=== PATIENT | female | born 1945 | race Hispanic/Latino ===

== ENCOUNTER 2020-06-09 14:21 | Outpatient (CLI) | payer MEDICARE, BC | END 2020-06-09 14:22 | disposition home or self-care (01) | LOC: CSHWCC 14:21 | PROVIDERS: ATTEND Nurse Practitioner Family | DX: E11.621 Type 2 diabetes mellitus with foot ulcer (principal); L97.518 Non-pressure chronic ulcer of other part of right foot with other specified severity; L89.610 Pressure ulcer of right heel, unstageable; R60.0 Localized edema; S80.821A Blister (nonthermal), right lower leg, initial encounter; S90.821A Blister (nonthermal), right foot, initial encounter; E11.22 Type 2 diabetes mellitus with diabetic chronic kidney disease; I12.0 Hypertensive chronic kidney disease with stage 5 chronic kidney disease or end stage renal disease; I87.2 Venous insufficiency (chronic) (peripheral); I96 Gangrene, not elsewhere classified; N18.6 End stage renal disease; T82.868A Thrombosis due to vascular prosthetic devices, implants and grafts, initial encounter; E11.51 Type 2 diabetes mellitus with diabetic peripheral angiopathy without gangrene | CPT/HCPCS: 99205; G0463 ==

== ENCOUNTER 2020-06-10 19:54 | Inpatient (IN) | payer MEDICARE, BC ==
[2020-06-10] MEDS ORDERED: guaiFENesin 100 MG/5 ML UDCUP PO PRN (23:15)
[2020-06-10] MEDS ORDERED: Loperamide HCl 2 MG CAP PO PRN (23:16)
[2020-06-10] MEDS ORDERED: Apixaban 2.5 MG TAB PO SCH (23:30)
[2020-06-10] MEDS ORDERED: Insulin Regular 300 UNITS/3 ML VIAL SC PRN (23:30)
[2020-06-10] MEDS ORDERED: Calcium Carbonate 500 MG ChewTAB PO SCH (23:59)
[2020-06-11] MEDS ORDERED: Acetaminophen 500 MG TAB PO SCH (01:00)
[2020-06-11] MEDS ORDERED: Calcium Carbonate 500 MG ChewTAB PO PRN ×2 (04:50→05:00)
[2020-06-11] MEDS: HumaLOG 300 UNITS/3 ML VIAL SC SCH ×3 (09:04→16:00)
[2020-06-11] MEDS: Clindamycin 150 MG CAP PO SCH ×3 (09:05→21:29)
[2020-06-11] MEDS: Polyethylene Glycol 3350 17 GM Packet PO SCH (09:05)
[2020-06-11] MEDS: hydrALAZINE 25 MG TAB PO SCH ×3 (09:05→21:00)
[2020-06-11] MEDS: NPH, Human Insulin Isophane 300 UNIT/3 ML VIAL SC SCH (09:05)
[2020-06-11] MEDS: cloNIDine 0.1 MG TAB PO SCH (09:05)
[2020-06-11] MEDS: Clopidogrel Bisulfate 75 MG TAB PO SCH (09:05)
[2020-06-11] MEDS: Simethicone Chewable 80 MG TAB PO SCH ×3 (09:06→21:29)
[2020-06-11] MEDS: Amlodipine 5 MG TAB PO SCH (09:06)
[2020-06-11] MEDS: Apixaban 2.5 MG TAB PO SCH ×2 (09:07→21:28)
[2020-06-11] MEDS: Metoprolol Tartrate 50 MG TAB PO SCH (09:07)
[2020-06-11] MEDS: Isosorbide Mononitrate 20 MG TAB PO SCH (09:39)
[2020-06-11] MEDS: Acetaminophen 500 MG TAB PO PRN ×4 (09:39→21:39)
[2020-06-11] MEDS ORDERED: Heparin 10,000 UNITS/ 10 ML VIAL SLOW IVP PRN (12:28)
[2020-06-11] MEDS ORDERED: Heparin 10,000 UNITS/ 10 ML VIAL CATH PRN (12:32)
[2020-06-11 14:35] LABS: SARS-CoV-2 PCR by NAA Not Detected (NotDetected)
[2020-06-11] MEDS: Atorvastatin Calcium 40 MG TAB PO SCH (21:28)
[2020-06-11] MEDS: rOPINIRole HCl 0.25 MG TAB PO SCH (21:28)
[2020-06-12] MEDS: Metoprolol Tartrate 50 MG TAB PO SCH ×2 (03:50→08:50)
[2020-06-12] MEDS: Isosorbide Mononitrate 20 MG TAB PO SCH ×2 (03:50→08:49)
[2020-06-12] MEDS: NPH, Human Insulin Isophane 300 UNIT/3 ML VIAL SC SCH ×2 (03:52→08:30)
[2020-06-12] MEDS: Acetaminophen 500 MG TAB PO PRN ×2 (04:06→10:04)
[2020-06-12] MEDS: HumaLOG 300 UNITS/3 ML VIAL SC SCH ×3 (08:30→17:10)
[2020-06-12] MEDS: Polyethylene Glycol 3350 17 GM Packet PO SCH (08:49)
[2020-06-12] MEDS: Clopidogrel Bisulfate 75 MG TAB PO SCH (08:50)
[2020-06-12] MEDS: Furosemide 40 MG TAB PO SCH (08:50)
[2020-06-12] MEDS: cloNIDine 0.1 MG TAB PO SCH (08:50)
[2020-06-12] MEDS: hydrALAZINE 25 MG TAB PO SCH ×2 (08:50→16:00)
[2020-06-12] MEDS: Apixaban 2.5 MG TAB PO SCH ×2 (08:50→21:04)
[2020-06-12] MEDS: Clindamycin 150 MG CAP PO SCH ×3 (08:50→22:17)
[2020-06-12] MEDS: Amlodipine 5 MG TAB PO SCH (08:50)
[2020-06-12] MEDS: Simethicone Chewable 80 MG TAB PO SCH ×3 (08:51→21:04)
[2020-06-12 10:40] LABS: #Eosinphils 0.1 10x3/uL (0.0-0.5); #Monocytes 1.2 10x3/uL (0.0-1.1); %Basophils 0.3 % (0.0-2.0); %Eosinophils 0.3 % (0.0-6.0); %Lymphocytes 4.8 % (18.0-47.0); %Monocytes 8.1 % (0.0-10.0); %Neutrophils 85.1 % (40.0-75.0); Hemoglobin 6.8 g/dL (12.0-15.5); Mean Corpuscular HGB CONC 32.2 g/dL (32.0-36.0); Mean Corpuscular Hemoglobin 29.1 pg (27.0-33.0); Mean Corpuscular Volume 90.2 fl (81.6-98.3); Mean Platelet Volume 9.5 fl (7.4-10.4); Platelet Count 185 10x3/uL (150-450); RBC Distribution Width 15.1 % (11.5-14.5); Red Blood Cell (RBC) Count 2.34 10x6/uL (3.90-5.03); White Blood Cell (WBC) Count 15.2 10x3/uL (3.5-10.5)
[2020-06-12 11:08] LABS: ALT (SGPT) 21 U/L (8-55); AST (SGOT) 35 U/L (5-34); Albumin 2.6 g/dL (3.4-4.8); Alkaline Phosphatase 94 U/L (40-110); Anion Gap 15 mmol/L (10-20); BUN (Urea Nitrogen) 24 mg/dL (9.8-20.1); Bilirubin, Total 0.7 mg/dL (0.2-1.2); Calc. Creatinine Clearance 27 mL/min (70-130); Calcium 9.5 mg/dL (7.8-10.44); Carbon Dioxide 27 mmol/L (23-31); Chloride 92 mmol/L (98-107); Globulin 3.3 g/dL (2.4-3.5); Glucose 130 mg/dL (83-110); Potassium 3.8 mmol/L (3.5-5.1); Protein, Total 5.9 g/dL (5.8-8.1); Sodium 130 mmol/L (136-145)
[2020-06-12] MEDS: HYDROcodone/Acetaminophen 5/325 mg Tablet PO PRN ×2 (13:22→21:04)
[2020-06-12] MEDS: Atorvastatin Calcium 40 MG TAB PO SCH (21:04)
[2020-06-12] MEDS: rOPINIRole HCl 0.25 MG TAB PO SCH (21:06)
[2020-06-13] MEDS: hydrALAZINE 25 MG TAB PO SCH ×4 (00:14→21:09)
[2020-06-13] MEDS: Metoprolol Tartrate 50 MG TAB PO SCH ×3 (00:14→21:08)
[2020-06-13] MEDS: Isosorbide Mononitrate 20 MG TAB PO SCH ×3 (00:14→22:00)
[2020-06-13] MEDS: NPH, Human Insulin Isophane 300 UNIT/3 ML VIAL SC SCH ×3 (05:42→21:02)
[2020-06-13 09:15] LABS: #Eosinphils 0.1 10x3/uL (0.0-0.5); #Monocytes 1.2 10x3/uL (0.0-1.1); #Neutrophils 12.3 10x3/uL (1.5-8.4); %Basophils 0.2 % (0.0-2.0); %Eosinophils 0.7 % (0.0-6.0); %Lymphocytes 5.5 % (18.0-47.0); %Neutrophils 83.9 % (40.0-75.0); Hemoglobin 8.1 g/dL (12.0-15.5); Mean Corpuscular HGB CONC 33.1 g/dL (32.0-36.0); Mean Corpuscular Hemoglobin 29.2 pg (27.0-33.0); Mean Corpuscular Volume 88.4 fl (81.6-98.3); Mean Platelet Volume 9.5 fl (7.4-10.4); Platelet Count 177 10x3/uL (150-450); RBC Distribution Width 14.9 % (11.5-14.5); Red Blood Cell (RBC) Count 2.77 10x6/uL (3.90-5.03); White Blood Cell (WBC) Count 14.7 10x3/uL (3.5-10.5)
[2020-06-13] MEDS ORDERED: NPH, Human Insulin Isophane 300 UNIT/3 ML VIAL ONE (10:01)
[2020-06-13] MEDS: HYDROcodone/Acetaminophen 5/325 mg Tablet PO PRN ×2 (10:03→15:01)
[2020-06-13] MEDS: HumaLOG 300 UNITS/3 ML VIAL SC SCH ×3 (10:16→18:57)
[2020-06-13] MEDS: Polyethylene Glycol 3350 17 GM Packet PO SCH (10:17)
[2020-06-13] MEDS: cloNIDine 0.1 MG TAB PO SCH (10:18)
[2020-06-13] MEDS: Amlodipine 5 MG TAB PO SCH (10:19)
[2020-06-13] MEDS: Simethicone Chewable 80 MG TAB PO SCH ×3 (10:20→21:09)
[2020-06-13] MEDS: Apixaban 2.5 MG TAB PO SCH ×2 (10:20→21:08)
[2020-06-13] MEDS: Clopidogrel Bisulfate 75 MG TAB PO SCH (10:20)
[2020-06-13] MEDS: Clindamycin 150 MG CAP PO SCH ×3 (10:20→21:11)
[2020-06-13] MEDS ORDERED: Epoetin (ESRD) 20,000 UNITS/ML SC SCH (12:30)
[2020-06-13] MEDS: EPOETIN ALFA-EPBX (ESRD) 4,000 UNIT/ML VIAL SC SCH (15:56)
[2020-06-13] MEDS: Atorvastatin Calcium 40 MG TAB PO SCH (21:08)
[2020-06-13] MEDS: rOPINIRole HCl 0.25 MG TAB PO SCH (21:09)
[2020-06-14 07:30] LABS: #Monocytes 1.1 10x3/uL (0.0-1.1); #Neutrophils 14.1 10x3/uL (1.5-8.4); %Basophils 0.2 % (0.0-2.0); %Eosinophils 0.2 % (0.0-6.0); %Lymphocytes 3.3 % (18.0-47.0); %Monocytes 6.8 % (0.0-10.0); %Neutrophils 87.8 % (40.0-75.0); Hemoglobin 9.4 g/dL (12.0-15.5); Mean Corpuscular HGB CONC 32.8 g/dL (32.0-36.0); Mean Corpuscular Hemoglobin 29.2 pg (27.0-33.0); Mean Corpuscular Volume 89.1 fl (81.6-98.3); Mean Platelet Volume 9.5 fl (7.4-10.4); Platelet Count 222 10x3/uL (150-450); Red Blood Cell (RBC) Count 3.22 10x6/uL (3.90-5.03); White Blood Cell (WBC) Count 16.1 10x3/uL (3.5-10.5)
[2020-06-14 07:46] LABS: Anion Gap 18 mmol/L (10-20); BUN (Urea Nitrogen) 19 mg/dL (9.8-20.1); Calc. Creatinine Clearance 34 mL/min (70-130); Calcium 9.7 mg/dL (7.8-10.44); Carbon Dioxide 24 mmol/L (23-31); Chloride 96 mmol/L (98-107); Glucose 100 mg/dL (83-110); Potassium 3.9 mmol/L (3.5-5.1); Sodium 134 mmol/L (136-145)
[2020-06-14] MEDS: HumaLOG 300 UNITS/3 ML VIAL SC SCH ×3 (08:15→16:43)
[2020-06-14] MEDS: NPH, Human Insulin Isophane 300 UNIT/3 ML VIAL SC SCH ×2 (08:16→21:44)
[2020-06-14] MEDS: Polyethylene Glycol 3350 17 GM Packet PO SCH (09:26)
[2020-06-14] MEDS: Clindamycin 150 MG CAP PO SCH ×3 (09:27→20:34)
[2020-06-14] MEDS: Amlodipine 5 MG TAB PO SCH (09:27)
[2020-06-14] MEDS: Simethicone Chewable 80 MG TAB PO SCH ×3 (09:28→20:34)
[2020-06-14] MEDS: hydrALAZINE 25 MG TAB PO SCH ×3 (09:28→20:48)
[2020-06-14] MEDS: Isosorbide Mononitrate 20 MG TAB PO SCH ×2 (09:29→20:35)
[2020-06-14] MEDS: cloNIDine 0.1 MG TAB PO SCH (09:29)
[2020-06-14] MEDS: Metoprolol Tartrate 50 MG TAB PO SCH (09:29)
[2020-06-14] MEDS: Apixaban 2.5 MG TAB PO SCH ×2 (09:29→20:33)
[2020-06-14] MEDS: Clopidogrel Bisulfate 75 MG TAB PO SCH (09:29)
[2020-06-14 13:00] LABS: Lactic Acid 0.7 mmol/L (0.5-2.2)
[2020-06-14] MEDS: HYDROcodone/Acetaminophen 5/325 mg Tablet PO PRN (14:10)
[2020-06-14] MEDS: Carvedilol 6.25 MG TAB PO SCH (16:50)
[2020-06-14] MEDS: rOPINIRole HCl 0.25 MG TAB PO SCH (20:34)
[2020-06-14] MEDS: Atorvastatin Calcium 40 MG TAB PO SCH (20:34)
[2020-06-14] MEDS: Insulin Regular 300 UNITS/3 ML VIAL SC PRN (21:11)
[2020-06-15] MEDS: Acetaminophen 500 MG TAB PO PRN (05:40)
[2020-06-15] MEDS: Insulin Regular 300 UNITS/3 ML VIAL SC PRN ×4 (05:50→20:58)
[2020-06-15] MEDS: Polyethylene Glycol 3350 17 GM Packet PO SCH (07:43)
[2020-06-15] MEDS: Amlodipine 5 MG TAB PO SCH (08:03)
[2020-06-15] MEDS: HYDROcodone/Acetaminophen 5/325 mg Tablet PO PRN (08:04)
[2020-06-15] MEDS: Clopidogrel Bisulfate 75 MG TAB PO SCH (08:10)
[2020-06-15] MEDS: Clindamycin 150 MG CAP PO SCH ×3 (08:10→21:04)
[2020-06-15] MEDS: Carvedilol 6.25 MG TAB PO SCH ×2 (08:11→16:27)
[2020-06-15] MEDS: Simethicone Chewable 80 MG TAB PO SCH ×3 (08:11→21:05)
[2020-06-15] MEDS: cloNIDine 0.1 MG TAB PO SCH (08:11)
[2020-06-15] MEDS: hydrALAZINE 25 MG TAB PO SCH ×3 (08:11→21:04)
[2020-06-15] MEDS: Apixaban 2.5 MG TAB PO SCH ×2 (08:11→21:05)
[2020-06-15] MEDS: Isosorbide Mononitrate 20 MG TAB PO SCH ×2 (08:21→21:27)
[2020-06-15] MEDS: HumaLOG 300 UNITS/3 ML VIAL SC SCH ×3 (08:22→17:35)
[2020-06-15] MEDS: NPH, Human Insulin Isophane 300 UNIT/3 ML VIAL SC SCH ×2 (08:22→21:27)
[2020-06-15 08:41] LABS: #Eosinphils 0.1 10x3/uL (0.0-0.5); #Monocytes 1.1 10x3/uL (0.0-1.1); #Neutrophils 13.7 10x3/uL (1.5-8.4); %Basophils 0.3 % (0.0-2.0); %Eosinophils 0.4 % (0.0-6.0); %Lymphocytes 3.7 % (18.0-47.0); %Monocytes 7.2 % (0.0-10.0); %Neutrophils 86.3 % (40.0-75.0); Hemoglobin 8.9 g/dL (12.0-15.5); Mean Corpuscular HGB CONC 33.1 g/dL (32.0-36.0); Mean Corpuscular Hemoglobin 29.4 pg (27.0-33.0); Mean Corpuscular Volume 88.8 fl (81.6-98.3); Mean Platelet Volume 9.6 fl (7.4-10.4); Platelet Count 202 10x3/uL (150-450); RBC Distribution Width 15.2 % (11.5-14.5); Red Blood Cell (RBC) Count 3.03 10x6/uL (3.90-5.03); White Blood Cell (WBC) Count 15.9 10x3/uL (3.5-10.5)
[2020-06-15] MEDS ORDERED: HYDROcodone/Acetaminophen 5/325 mg Tablet PO SCH (10:00)
[2020-06-15] MEDS: Morphine 2 MG/ML VIAL SLOW IVP PRN ×3 (13:09→21:25)
[2020-06-15] MEDS: Atorvastatin Calcium 40 MG TAB PO SCH (21:04)
[2020-06-15] MEDS: rOPINIRole HCl 0.25 MG TAB PO SCH (21:05)
[2020-06-16] MEDS: Insulin Regular 300 UNITS/3 ML VIAL SC PRN ×2 (04:40→08:50)
[2020-06-16 05:30] LABS: Anion Gap 14 mmol/L (10-20)
[2020-06-16 05:42] LABS: #Basophils 0.1 10x3/uL (0.0-0.2); #Eosinphils 0.1 10x3/uL (0.0-0.5); #Monocytes 0.8 10x3/uL (0.0-1.1); #Neutrophils 10.5 10x3/uL (1.5-8.4); %Basophils 0.4 % (0.0-2.0); %Lymphocytes 5.2 % (18.0-47.0); %Monocytes 6.4 % (0.0-10.0); %Neutrophils 83.6 % (40.0-75.0); Hemoglobin 8.7 g/dL (12.0-15.5); Mean Corpuscular HGB CONC 33.2 g/dL (32.0-36.0); Mean Corpuscular Hemoglobin 29.1 pg (27.0-33.0); Mean Corpuscular Volume 87.6 fl (81.6-98.3); Mean Platelet Volume 9.5 fl (7.4-10.4); Platelet Count 184 10x3/uL (150-450); RBC Distribution Width 15.1 % (11.5-14.5); Red Blood Cell (RBC) Count 2.99 10x6/uL (3.90-5.03); White Blood Cell (WBC) Count 12.5 10x3/uL (3.5-10.5)
[2020-06-16 05:49] LABS: BUN (Urea Nitrogen) 34 mg/dL (9.8-20.1); Calc. Creatinine Clearance 21 mL/min (70-130); Calcium 9.2 mg/dL (7.8-10.44); Carbon Dioxide 28 mmol/L (23-31); Chloride 91 mmol/L (98-107); Glucose 186 mg/dL (83-110); Sodium 129 mmol/L (136-145)
[2020-06-16] MEDS: Polyethylene Glycol 3350 17 GM Packet PO SCH (08:40)
[2020-06-16] MEDS: Clindamycin 150 MG CAP PO SCH ×3 (08:40→21:09)
[2020-06-16] MEDS: Simethicone Chewable 80 MG TAB PO SCH ×3 (08:40→21:10)
[2020-06-16] MEDS: Clopidogrel Bisulfate 75 MG TAB PO SCH (08:41)
[2020-06-16] MEDS: Isosorbide Mononitrate 20 MG TAB PO SCH ×2 (08:41→21:09)
[2020-06-16] MEDS: Apixaban 2.5 MG TAB PO SCH ×2 (08:41→21:08)
[2020-06-16] MEDS: Furosemide 40 MG TAB PO SCH (08:41)
[2020-06-16] MEDS: Amlodipine 5 MG TAB PO SCH ×2 (08:42→08:43)
[2020-06-16] MEDS: Carvedilol 6.25 MG TAB PO SCH ×2 (08:43→18:03)
[2020-06-16] MEDS: hydrALAZINE 25 MG TAB PO SCH ×3 (08:43→23:00)
[2020-06-16] MEDS: NPH, Human Insulin Isophane 300 UNIT/3 ML VIAL SC SCH ×2 (08:47→21:11)
[2020-06-16] MEDS: HumaLOG 300 UNITS/3 ML VIAL SC SCH ×3 (08:48→16:36)
[2020-06-16] MEDS: Morphine 2 MG/ML VIAL SLOW IVP PRN (13:38)
[2020-06-16] MEDS: Dextrose 50% Abboject 50 ML SYRINGE SLOW IVP PRN (16:33)
[2020-06-16] MEDS: EPOETIN ALFA-EPBX (ESRD) 4,000 UNIT/ML VIAL SC SCH (17:52)
[2020-06-16] MEDS: Atorvastatin Calcium 40 MG TAB PO SCH (21:09)
[2020-06-16] MEDS: rOPINIRole HCl 0.25 MG TAB PO SCH (21:10)
[2020-06-16] MEDS: Acetaminophen 500 MG TAB PO PRN (21:43)
[2020-06-17] MEDS: Acetaminophen 500 MG TAB PO PRN ×3 (02:22→21:01)
[2020-06-17] MEDS: Polyethylene Glycol 3350 17 GM Packet PO SCH (09:24)
[2020-06-17] MEDS: Clindamycin 150 MG CAP PO SCH ×3 (09:24→20:59)
[2020-06-17] MEDS: Carvedilol 6.25 MG TAB PO SCH ×2 (09:25→16:48)
[2020-06-17] MEDS: Amlodipine 5 MG TAB PO SCH (09:25)
[2020-06-17] MEDS: hydrALAZINE 25 MG TAB PO SCH ×3 (09:29→20:59)
[2020-06-17] MEDS: Apixaban 2.5 MG TAB PO SCH ×2 (09:29→20:58)
[2020-06-17] MEDS: Simethicone Chewable 80 MG TAB PO SCH ×3 (09:29→21:00)
[2020-06-17] MEDS: Clopidogrel Bisulfate 75 MG TAB PO SCH (09:29)
[2020-06-17] MEDS: NPH, Human Insulin Isophane 300 UNIT/3 ML VIAL SC SCH (09:30)
[2020-06-17] MEDS: Isosorbide Mononitrate 20 MG TAB PO SCH ×2 (09:30→21:00)
[2020-06-17] MEDS: HumaLOG 300 UNITS/3 ML VIAL SC SCH ×3 (09:31→16:29)
[2020-06-17] MEDS ORDERED: Modafinil 100 MG TAB PO SCH (11:00)
[2020-06-17 11:22] LABS: #Eosinphils 0.1 10x3/uL (0.0-0.5); #Monocytes 1.1 10x3/uL (0.0-1.1); #Neutrophils 10.6 10x3/uL (1.5-8.4); %Basophils 0.3 % (0.0-2.0); %Eosinophils 0.5 % (0.0-6.0); %Lymphocytes 4.3 % (18.0-47.0); %Monocytes 8.8 % (0.0-10.0); %Neutrophils 83.6 % (40.0-75.0); Mean Corpuscular Hemoglobin 29.2 pg (27.0-33.0); Mean Corpuscular Volume 91.2 fl (81.6-98.3); Mean Platelet Volume 9.6 fl (7.4-10.4); Platelet Count 184 10x3/uL (150-450); RBC Distribution Width 15.4 % (11.5-14.5); Red Blood Cell (RBC) Count 2.74 10x6/uL (3.90-5.03); White Blood Cell (WBC) Count 12.6 10x3/uL (3.5-10.5)
[2020-06-17 11:29] LABS: Anion Gap 12 mmol/L (10-20); BUN (Urea Nitrogen) 27 mg/dL (9.8-20.1); Calc. Creatinine Clearance 25 mL/min (70-130); Calcium 9.4 mg/dL (7.8-10.44); Carbon Dioxide 27 mmol/L (23-31); Chloride 94 mmol/L (98-107); Glucose 212 mg/dL (83-110); Potassium 3.7 mmol/L (3.5-5.1); Sodium 129 mmol/L (136-145)
[2020-06-17] MEDS: HYDROcodone/Acetaminophen 5/325 mg Tablet PO PRN (12:18)
[2020-06-17] MEDS: Atorvastatin Calcium 40 MG TAB PO SCH (20:58)
[2020-06-17] MEDS: rOPINIRole HCl 0.25 MG TAB PO SCH (21:00)
[2020-06-18] MEDS: NPH, Human Insulin Isophane 300 UNIT/3 ML VIAL SC SCH ×3 (01:14→21:14)
[2020-06-18] MEDS: HumaLOG 300 UNITS/3 ML VIAL SC SCH ×3 (07:30→16:44)
[2020-06-18] MEDS: Ferrous Gluconate 324 MG TAB PO SCH (08:23)
[2020-06-18] MEDS: Acetaminophen 500 MG TAB PO PRN (08:23)
[2020-06-18] MEDS: Carvedilol 6.25 MG TAB PO SCH ×2 (08:23→16:44)
[2020-06-18] MEDS: Clopidogrel Bisulfate 75 MG TAB PO SCH (08:23)
[2020-06-18] MEDS: Clindamycin 150 MG CAP PO SCH ×3 (08:24→21:20)
[2020-06-18] MEDS: hydrALAZINE 25 MG TAB PO SCH ×3 (08:24→21:20)
[2020-06-18] MEDS: Amlodipine 5 MG TAB PO SCH (08:24)
[2020-06-18] MEDS: Polyethylene Glycol 3350 17 GM Packet PO SCH (08:24)
[2020-06-18] MEDS: Apixaban 2.5 MG TAB PO SCH ×2 (08:25→21:20)
[2020-06-18] MEDS: Simethicone Chewable 80 MG TAB PO SCH ×3 (08:35→21:21)
[2020-06-18] MEDS: Isosorbide Mononitrate 20 MG TAB PO SCH ×2 (08:37→21:20)
[2020-06-18 12:38] LABS: Hep B Surf Ag Non-Reactive S/CO (NonReactive)
[2020-06-18 12:50] LABS: HBSAg Index 0.33 S/CO (0-0.99)
[2020-06-18] MEDS: EPOETIN ALFA-EPBX (ESRD) 4,000 UNIT/ML VIAL SC SCH (15:04)
[2020-06-18] MEDS: rOPINIRole HCl 0.25 MG TAB PO SCH (21:19)
[2020-06-18] MEDS: Atorvastatin Calcium 40 MG TAB PO SCH (21:21)
[2020-06-19] MEDS: Ferrous Gluconate 324 MG TAB PO SCH (08:33)
[2020-06-19] MEDS: Clopidogrel Bisulfate 75 MG TAB PO SCH (08:33)
[2020-06-19] MEDS: Simethicone Chewable 80 MG TAB PO SCH ×3 (08:33→20:54)
[2020-06-19] MEDS: Isosorbide Mononitrate 20 MG TAB PO SCH ×2 (08:33→20:53)
[2020-06-19] MEDS: Carvedilol 6.25 MG TAB PO SCH ×2 (08:33→16:09)
[2020-06-19] MEDS: Apixaban 2.5 MG TAB PO SCH ×2 (08:34→20:52)
[2020-06-19] MEDS: hydrALAZINE 25 MG TAB PO SCH ×3 (08:34→20:52)
[2020-06-19] MEDS: Polyethylene Glycol 3350 17 GM Packet PO SCH (08:35)
[2020-06-19] MEDS: NPH, Human Insulin Isophane 300 UNIT/3 ML VIAL SC SCH ×2 (08:35→20:45)
[2020-06-19] MEDS: HumaLOG 300 UNITS/3 ML VIAL SC SCH ×3 (08:35→16:09)
[2020-06-19] MEDS: Clindamycin 150 MG CAP PO SCH ×3 (08:40→20:51)
[2020-06-19 10:46] LABS: Hemoglobin 7.9 g/dL (12.0-15.5)
[2020-06-19] MEDS: Acetaminophen 500 MG TAB PO PRN ×2 (10:50→18:40)
[2020-06-19] MEDS ORDERED: Modafinil 100 MG TAB PO SCH (11:30)
[2020-06-19] MEDS: rOPINIRole HCl 0.25 MG TAB PO SCH (20:51)
[2020-06-19] MEDS: Atorvastatin Calcium 40 MG TAB PO SCH (20:53)
[2020-06-20] MEDS: HumaLOG 300 UNITS/3 ML VIAL SC SCH ×3 (08:30→18:52)
[2020-06-20] MEDS ORDERED: REGRANEX 0.01% TOP SCH (09:00)
[2020-06-20] MEDS ORDERED: REGRANEX 0.01% FS SCH (09:00)
[2020-06-20] MEDS: Isosorbide Mononitrate 20 MG TAB PO SCH ×2 (10:00→21:17)
[2020-06-20] MEDS: Simethicone Chewable 80 MG TAB PO SCH ×3 (10:00→21:15)
[2020-06-20] MEDS: Carvedilol 6.25 MG TAB PO SCH ×2 (10:00→18:16)
[2020-06-20] MEDS: Apixaban 2.5 MG TAB PO SCH ×2 (10:00→21:16)
[2020-06-20] MEDS: NPH, Human Insulin Isophane 300 UNIT/3 ML VIAL SC SCH (10:00)
[2020-06-20] MEDS: hydrALAZINE 25 MG TAB PO SCH ×3 (10:00→21:16)
[2020-06-20] MEDS: Folic Acid 1 MG TAB PO SCH (10:00)
[2020-06-20] MEDS: Amlodipine 5 MG TAB PO SCH (10:00)
[2020-06-20] MEDS: Ferrous Gluconate 324 MG TAB PO SCH (10:00)
[2020-06-20] MEDS: Polyethylene Glycol 3350 17 GM Packet PO SCH (10:00)
[2020-06-20] MEDS: Clindamycin 150 MG CAP PO SCH ×3 (10:00→21:15)
[2020-06-20] MEDS: Clopidogrel Bisulfate 75 MG TAB PO SCH (10:00)
[2020-06-20] MEDS: Acetaminophen 500 MG TAB PO PRN (11:44)
[2020-06-20] MEDS: Atorvastatin Calcium 40 MG TAB PO SCH (21:15)
[2020-06-20] MEDS: rOPINIRole HCl 0.25 MG TAB PO SCH (21:16)
[2020-06-21] MEDS: NPH, Human Insulin Isophane 300 UNIT/3 ML VIAL SC SCH ×3 (05:50→20:49)
[2020-06-21] MEDS: HumaLOG 300 UNITS/3 ML VIAL SC SCH ×3 (07:30→18:20)
[2020-06-21] MEDS: Apixaban 2.5 MG TAB PO SCH ×2 (09:30→22:14)
[2020-06-21] MEDS: Ferrous Gluconate 324 MG TAB PO SCH (09:30)
[2020-06-21] MEDS: Folic Acid 1 MG TAB PO SCH (09:30)
[2020-06-21] MEDS: Polyethylene Glycol 3350 17 GM Packet PO SCH (09:30)
[2020-06-21] MEDS: hydrALAZINE 25 MG TAB PO SCH ×3 (09:30→22:15)
[2020-06-21] MEDS: Carvedilol 6.25 MG TAB PO SCH ×2 (09:30→16:13)
[2020-06-21] MEDS: Clindamycin 150 MG CAP PO SCH ×3 (09:30→22:15)
[2020-06-21] MEDS: Clopidogrel Bisulfate 75 MG TAB PO SCH (09:30)
[2020-06-21] MEDS: Acetaminophen 500 MG TAB PO PRN (09:30)
[2020-06-21] MEDS: Simethicone Chewable 80 MG TAB PO SCH ×2 (09:30→16:13)
[2020-06-21] MEDS: Isosorbide Mononitrate 20 MG TAB PO SCH ×2 (09:30→22:16)
[2020-06-21] MEDS: Amlodipine 5 MG TAB PO SCH (09:30)
[2020-06-21] MEDS: EPOETIN ALFA-EPBX (ESRD) 4,000 UNIT/ML VIAL SC SCH (18:23)
[2020-06-21] MEDS: Atorvastatin Calcium 40 MG TAB PO SCH (22:14)
[2020-06-21] MEDS: rOPINIRole HCl 0.25 MG TAB PO SCH (22:16)
[2020-06-22] MEDS: Simethicone Chewable 80 MG TAB PO SCH ×4 (01:16→20:14)
[2020-06-22] MEDS: HumaLOG 300 UNITS/3 ML VIAL SC SCH ×3 (07:30→17:30)
[2020-06-22] MEDS: NPH, Human Insulin Isophane 300 UNIT/3 ML VIAL SC SCH ×2 (08:45→21:19)
[2020-06-22] MEDS: Folic Acid 1 MG TAB PO SCH (09:00)
[2020-06-22] MEDS: Clopidogrel Bisulfate 75 MG TAB PO SCH (09:00)
[2020-06-22] MEDS: Apixaban 2.5 MG TAB PO SCH ×2 (09:00→20:13)
[2020-06-22] MEDS: Isosorbide Mononitrate 20 MG TAB PO SCH ×2 (09:00→20:13)
[2020-06-22] MEDS: Clindamycin 150 MG CAP PO SCH ×3 (09:00→20:13)
[2020-06-22] MEDS: Ferrous Gluconate 324 MG TAB PO SCH (09:00)
[2020-06-22] MEDS: Polyethylene Glycol 3350 17 GM Packet PO SCH (09:00)
[2020-06-22] MEDS: Amlodipine 5 MG TAB PO SCH (09:00)
[2020-06-22] MEDS: Carvedilol 6.25 MG TAB PO SCH ×2 (17:20→18:05)
[2020-06-22] MEDS: hydrALAZINE 25 MG TAB PO SCH ×2 (18:03→20:13)
[2020-06-22] MEDS: rOPINIRole HCl 0.25 MG TAB PO SCH (20:13)
[2020-06-22] MEDS: Atorvastatin Calcium 40 MG TAB PO SCH (20:13)
[2020-06-23] MEDS: Isosorbide Mononitrate 20 MG TAB PO SCH ×2 (08:43→20:32)
[2020-06-23] MEDS: Ferrous Gluconate 324 MG TAB PO SCH (08:44)
[2020-06-23] MEDS: Clopidogrel Bisulfate 75 MG TAB PO SCH (08:44)
[2020-06-23] MEDS: Folic Acid 1 MG TAB PO SCH (08:44)
[2020-06-23] MEDS: hydrALAZINE 25 MG TAB PO SCH (08:44)
[2020-06-23] MEDS: Apixaban 2.5 MG TAB PO SCH ×2 (08:44→20:32)
[2020-06-23] MEDS: Carvedilol 6.25 MG TAB PO SCH ×2 (08:45→17:18)
[2020-06-23] MEDS: Polyethylene Glycol 3350 17 GM Packet PO SCH (08:45)
[2020-06-23] MEDS: Amlodipine 5 MG TAB PO SCH ×2 (08:45→20:32)
[2020-06-23] MEDS: Clindamycin 150 MG CAP PO SCH ×3 (08:45→20:32)
[2020-06-23] MEDS: NPH, Human Insulin Isophane 300 UNIT/3 ML VIAL SC SCH (08:46)
[2020-06-23] MEDS: HumaLOG 300 UNITS/3 ML VIAL SC SCH ×3 (08:46→17:18)
[2020-06-23] MEDS: Simethicone Chewable 80 MG TAB PO SCH ×3 (08:46→20:33)
[2020-06-23 10:29] LABS: #Eosinphils 0.1 10x3/uL (0.0-0.5); #Monocytes 0.6 10x3/uL (0.0-1.1); #Neutrophils 8.2 10x3/uL (1.5-8.4); %Basophils 0.3 % (0.0-2.0); %Eosinophils 1.1 % (0.0-6.0); %Lymphocytes 5.7 % (18.0-47.0); %Monocytes 6.3 % (0.0-10.0); %Neutrophils 84.9 % (40.0-75.0); Hemoglobin 7.8 g/dL (12.0-15.5); Mean Corpuscular HGB CONC 31.7 g/dL (32.0-36.0); Mean Corpuscular Hemoglobin 29.4 pg (27.0-33.0); Mean Corpuscular Volume 92.8 fl (81.6-98.3); Mean Platelet Volume 9.5 fl (7.4-10.4); Platelet Count 162 10x3/uL (150-450); RBC Distribution Width 15.6 % (11.5-14.5); Red Blood Cell (RBC) Count 2.65 10x6/uL (3.90-5.03); White Blood Cell (WBC) Count 9.6 10x3/uL (3.5-10.5)
[2020-06-23 10:33] LABS: Anion Gap 12 mmol/L (10-20); BUN (Urea Nitrogen) 14 mg/dL (9.8-20.1); Calc. Creatinine Clearance 52 mL/min (70-130); Calcium 8.7 mg/dL (7.8-10.44); Carbon Dioxide 28 mmol/L (23-31); Chloride 106 mmol/L (98-107); Glucose 170 mg/dL (83-110); Potassium 3.5 mmol/L (3.5-5.1); Sodium 142 mmol/L (136-145)
[2020-06-23] MEDS ORDERED: Saccharomyces boulardii 250 MG CAP PO SCH (13:00)
[2020-06-23] MEDS: EPOETIN ALFA-EPBX (ESRD) 4,000 UNIT/ML VIAL SC SCH (13:57)
[2020-06-23] MEDS: Atorvastatin Calcium 40 MG TAB PO SCH (20:32)
[2020-06-23] MEDS: rOPINIRole HCl 0.25 MG TAB PO SCH (20:33)
[2020-06-24] MEDS: NPH, Human Insulin Isophane 300 UNIT/3 ML VIAL SC SCH ×3 (05:48→21:20)
[2020-06-24] MEDS: Carvedilol 6.25 MG TAB PO SCH (08:22)
[2020-06-24] MEDS: Clindamycin 150 MG CAP PO SCH (08:22)
[2020-06-24] MEDS: HumaLOG 300 UNITS/3 ML VIAL SC SCH ×3 (08:22→16:13)
[2020-06-24] MEDS: Simethicone Chewable 80 MG TAB PO SCH ×3 (08:23→21:18)
[2020-06-24] MEDS: Amlodipine 5 MG TAB PO SCH ×2 (08:23→21:17)
[2020-06-24] MEDS: Saccharomyces boulardii 250 MG CAP PO SCH (08:23)
[2020-06-24] MEDS: Ferrous Gluconate 324 MG TAB PO SCH (08:23)
[2020-06-24] MEDS: Folic Acid 1 MG TAB PO SCH (08:23)
[2020-06-24] MEDS: Apixaban 2.5 MG TAB PO SCH ×2 (08:23→21:18)
[2020-06-24] MEDS: Clopidogrel Bisulfate 75 MG TAB PO SCH (08:23)
[2020-06-24] MEDS: Polyethylene Glycol 3350 17 GM Packet PO SCH (08:24)
[2020-06-24] MEDS: Isosorbide Mononitrate 20 MG TAB PO SCH ×2 (08:24→21:17)
[2020-06-24] MEDS: Acetaminophen 500 MG TAB PO PRN (12:37)
[2020-06-24] MEDS: Atorvastatin Calcium 40 MG TAB PO SCH (21:18)
[2020-06-24] MEDS: rOPINIRole HCl 0.25 MG TAB PO SCH (21:18)
[2020-06-25 04:54] LABS: #Eosinphils 0.3 10x3/uL (0.0-0.5); #Monocytes 0.9 10x3/uL (0.0-1.1); #Neutrophils 7.8 10x3/uL (1.5-8.4); %Basophils 0.4 % (0.0-2.0); %Eosinophils 2.5 % (0.0-6.0); %Monocytes 9.1 % (0.0-10.0); %Neutrophils 78.7 % (40.0-75.0); Hemoglobin 8.5 g/dL (12.0-15.5); Mean Corpuscular HGB CONC 33.2 g/dL (32.0-36.0); Mean Corpuscular Hemoglobin 29.7 pg (27.0-33.0); Mean Corpuscular Volume 89.5 fl (81.6-98.3); Mean Platelet Volume 9.7 fl (7.4-10.4); Platelet Count 167 10x3/uL (150-450); RBC Distribution Width 15.4 % (11.5-14.5); Red Blood Cell (RBC) Count 2.86 10x6/uL (3.90-5.03)
[2020-06-25 05:03] LABS: Anion Gap 15 mmol/L (10-20)
[2020-06-25 05:10] LABS: BUN (Urea Nitrogen) 25 mg/dL (9.8-20.1); Calc. Creatinine Clearance 27 mL/min (70-130); Calcium 9.8 mg/dL (7.8-10.44); Carbon Dioxide 24 mmol/L (23-31); Chloride 99 mmol/L (98-107); Glucose 143 mg/dL (83-110); Potassium 3.8 mmol/L (3.5-5.1); Sodium 134 mmol/L (136-145)
[2020-06-25] MEDS: Folic Acid 1 MG TAB PO SCH (08:26)
[2020-06-25] MEDS: Apixaban 2.5 MG TAB PO SCH ×3 (08:26→20:57)
[2020-06-25] MEDS: HumaLOG 300 UNITS/3 ML VIAL SC SCH ×3 (08:26→16:34)
[2020-06-25] MEDS: NPH, Human Insulin Isophane 300 UNIT/3 ML VIAL SC SCH ×2 (08:26→20:56)
[2020-06-25] MEDS: Simethicone Chewable 80 MG TAB PO SCH ×3 (08:26→20:49)
[2020-06-25] MEDS: Isosorbide Mononitrate 20 MG TAB PO SCH ×2 (08:26→20:51)
[2020-06-25] MEDS: Amlodipine 5 MG TAB PO SCH ×2 (08:27→20:50)
[2020-06-25] MEDS: Clopidogrel Bisulfate 75 MG TAB PO SCH (08:27)
[2020-06-25] MEDS: Ferrous Gluconate 324 MG TAB PO SCH (08:27)
[2020-06-25] MEDS: Polyethylene Glycol 3350 17 GM Packet PO SCH (08:28)
[2020-06-25] MEDS: Saccharomyces boulardii 250 MG CAP PO SCH (08:28)
[2020-06-25] MEDS: Acetaminophen 500 MG TAB PO PRN ×2 (11:51→20:49)
[2020-06-25] MEDS: EPOETIN ALFA-EPBX (ESRD) 4,000 UNIT/ML VIAL SC SCH (14:07)
[2020-06-25] MEDS: Atorvastatin Calcium 40 MG TAB PO SCH (20:49)
[2020-06-25] MEDS: rOPINIRole HCl 0.25 MG TAB PO SCH (20:52)
[2020-06-26 04:57] LABS: #Eosinphils 0.2 10x3/uL (0.0-0.5); #Monocytes 0.9 10x3/uL (0.0-1.1); #Neutrophils 6.8 10x3/uL (1.5-8.4); %Basophils 0.4 % (0.0-2.0); %Eosinophils 2.6 % (0.0-6.0); %Lymphocytes 9.4 % (18.0-47.0); %Monocytes 10.5 % (0.0-10.0); %Neutrophils 75.8 % (40.0-75.0); Hemoglobin 8.4 g/dL (12.0-15.5); Mean Corpuscular HGB CONC 32.3 g/dL (32.0-36.0); Mean Corpuscular Hemoglobin 29.2 pg (27.0-33.0); Mean Corpuscular Volume 90.3 fl (81.6-98.3); Mean Platelet Volume 9.5 fl (7.4-10.4); Platelet Count 156 10x3/uL (150-450); RBC Distribution Width 15.5 % (11.5-14.5); Red Blood Cell (RBC) Count 2.88 10x6/uL (3.90-5.03)
[2020-06-26 05:06] LABS: Anion Gap 9 mmol/L (10-20); BUN (Urea Nitrogen) 16 mg/dL (9.8-20.1); Calc. Creatinine Clearance 37 mL/min (70-130); Calcium 9.2 mg/dL (7.8-10.44); Carbon Dioxide 30 mmol/L (23-31); Chloride 100 mmol/L (98-107); Glucose 140 mg/dL (83-110); Potassium 3.4 mmol/L (3.5-5.1); Sodium 136 mmol/L (136-145)
[2020-06-26] MEDS: HumaLOG 300 UNITS/3 ML VIAL SC SCH ×3 (08:38→17:18)
[2020-06-26] MEDS: Ferrous Gluconate 324 MG TAB PO SCH (08:39)
[2020-06-26] MEDS: Amlodipine 5 MG TAB PO SCH ×2 (08:39→20:48)
[2020-06-26] MEDS: NPH, Human Insulin Isophane 300 UNIT/3 ML VIAL SC SCH ×2 (08:40→20:54)
[2020-06-26] MEDS: Isosorbide Mononitrate 20 MG TAB PO SCH ×2 (08:40→20:49)
[2020-06-26] MEDS: Folic Acid 1 MG TAB PO SCH (08:40)
[2020-06-26] MEDS: Clopidogrel Bisulfate 75 MG TAB PO SCH (08:40)
[2020-06-26] MEDS: Polyethylene Glycol 3350 17 GM Packet PO SCH (08:41)
[2020-06-26] MEDS: Simethicone Chewable 80 MG TAB PO SCH ×3 (08:41→20:48)
[2020-06-26] MEDS: Saccharomyces boulardii 250 MG CAP PO SCH (08:41)
[2020-06-26] MEDS: Apixaban 2.5 MG TAB PO SCH ×2 (08:41→20:48)
[2020-06-26] MEDS: Acetaminophen 500 MG TAB PO PRN ×2 (08:53→20:50)
[2020-06-26] MEDS ORDERED: Potassium Chloride 20 MEQ TAB PO SCH (09:30)
[2020-06-26] MEDS: rOPINIRole HCl 0.25 MG TAB PO SCH (20:48)
[2020-06-26] MEDS: Atorvastatin Calcium 40 MG TAB PO SCH (20:49)
[2020-06-27 05:15] LABS: #Eosinphils 0.3 10x3/uL (0.0-0.5); #Neutrophils 7.7 10x3/uL (1.5-8.4); %Basophils 0.4 % (0.0-2.0); %Eosinophils 2.7 % (0.0-6.0); %Lymphocytes 12.3 % (18.0-47.0); %Monocytes 9.4 % (0.0-10.0); Hemoglobin 8.6 g/dL (12.0-15.5); Mean Corpuscular HGB CONC 32.3 g/dL (32.0-36.0); Mean Corpuscular Hemoglobin 29.8 pg (27.0-33.0); Mean Platelet Volume 9.5 fl (7.4-10.4); Platelet Count 158 10x3/uL (150-450); RBC Distribution Width 15.8 % (11.5-14.5); Red Blood Cell (RBC) Count 2.89 10x6/uL (3.90-5.03); White Blood Cell (WBC) Count 10.4 10x3/uL (3.5-10.5)
[2020-06-27] MEDS: Apixaban 2.5 MG TAB PO SCH (09:06)
[2020-06-27] MEDS: HumaLOG 300 UNITS/3 ML VIAL SC SCH ×3 (09:07→17:48)
[2020-06-27] MEDS: Ferrous Gluconate 324 MG TAB PO SCH (09:08)
[2020-06-27] MEDS: Amlodipine 5 MG TAB PO SCH ×2 (09:10→23:55)
[2020-06-27] MEDS: Simethicone Chewable 80 MG TAB PO SCH ×3 (09:11→23:58)
[2020-06-27] MEDS: Saccharomyces boulardii 250 MG CAP PO SCH (09:11)
[2020-06-27] MEDS: Polyethylene Glycol 3350 17 GM Packet PO SCH (09:11)
[2020-06-27] MEDS: NPH, Human Insulin Isophane 300 UNIT/3 ML VIAL SC SCH (09:11)
[2020-06-27] MEDS: Isosorbide Mononitrate 20 MG TAB PO SCH ×2 (09:11→23:57)
[2020-06-27] MEDS: Acetaminophen 500 MG TAB PO PRN ×2 (14:41→22:44)
[2020-06-27] MEDS: EPOETIN ALFA-EPBX (ESRD) 4,000 UNIT/ML VIAL SC SCH (17:51)
[2020-06-27] MEDS: Folic Acid 1 MG TAB PO SCH (17:52)
[2020-06-27] MEDS: rOPINIRole HCl 0.25 MG TAB PO SCH (23:56)
[2020-06-27] MEDS: Atorvastatin Calcium 40 MG TAB PO SCH (23:58)
[2020-06-27] MEDS: Gabapentin 300 MG CAP PO SCH (23:59)
[2020-06-28] MEDS: Ferrous Gluconate 324 MG TAB PO SCH (08:32)
[2020-06-28] MEDS: Folic Acid 1 MG TAB PO SCH (08:32)
[2020-06-28] MEDS: Amlodipine 5 MG TAB PO SCH ×2 (08:32→21:16)
[2020-06-28] MEDS: Polyethylene Glycol 3350 17 GM Packet PO SCH (08:33)
[2020-06-28] MEDS: Gabapentin 300 MG CAP PO SCH ×2 (08:33→21:17)
[2020-06-28] MEDS: Saccharomyces boulardii 250 MG CAP PO SCH (08:33)
[2020-06-28] MEDS: HumaLOG 300 UNITS/3 ML VIAL SC SCH ×3 (08:33→17:09)
[2020-06-28] MEDS: Simethicone Chewable 80 MG TAB PO SCH ×3 (08:33→21:16)
[2020-06-28] MEDS: NPH, Human Insulin Isophane 300 UNIT/3 ML VIAL SC SCH ×3 (08:33→21:40)
[2020-06-28] MEDS: Isosorbide Mononitrate 20 MG TAB PO SCH ×2 (08:33→21:39)
[2020-06-28] MEDS: Dextrose 50% Abboject 50 ML SYRINGE SLOW IVP PRN (19:37)
[2020-06-28] MEDS: Atorvastatin Calcium 40 MG TAB PO SCH (21:16)
[2020-06-28] MEDS: Enoxaparin Sodium 30 MG/0.3 ML SYRINGE SC SCH (21:16)
[2020-06-28] MEDS: rOPINIRole HCl 0.25 MG TAB PO SCH (21:16)
[2020-06-29 06:01] LABS: #Eosinphils 0.2 10x3/uL (0.0-0.5); #Monocytes 1.2 10x3/uL (0.0-1.1); #Neutrophils 6.2 10x3/uL (1.5-8.4); %Basophils 0.4 % (0.0-2.0); %Eosinophils 2.4 % (0.0-6.0); %Lymphocytes 14.9 % (18.0-47.0); %Monocytes 13.1 % (0.0-10.0); %Neutrophils 67.9 % (40.0-75.0); Hemoglobin 9.6 g/dL (12.0-15.5); Mean Corpuscular HGB CONC 31.6 g/dL (32.0-36.0); Mean Corpuscular Hemoglobin 29.4 pg (27.0-33.0); Mean Platelet Volume 9.7 fl (7.4-10.4); Platelet Count 160 10x3/uL (150-450); RBC Distribution Width 16.1 % (11.5-14.5); Red Blood Cell (RBC) Count 3.27 10x6/uL (3.90-5.03); White Blood Cell (WBC) Count 9.2 10x3/uL (3.5-10.5)
[2020-06-29] MEDS: Folic Acid 1 MG TAB PO SCH (08:35)
[2020-06-29] MEDS: Polyethylene Glycol 3350 17 GM Packet PO SCH (08:35)
[2020-06-29] MEDS: Saccharomyces boulardii 250 MG CAP PO SCH (08:35)
[2020-06-29] MEDS: Isosorbide Mononitrate 20 MG TAB PO SCH ×2 (08:35→20:37)
[2020-06-29] MEDS: Amlodipine 5 MG TAB PO SCH ×2 (08:36→20:34)
[2020-06-29] MEDS: Simethicone Chewable 80 MG TAB PO SCH ×3 (08:37→20:34)
[2020-06-29] MEDS: Gabapentin 300 MG CAP PO SCH ×2 (08:37→20:33)
[2020-06-29] MEDS: HumaLOG 300 UNITS/3 ML VIAL SC SCH ×4 (08:37→17:30)
[2020-06-29] MEDS: NPH, Human Insulin Isophane 300 UNIT/3 ML VIAL SC SCH ×2 (08:38→20:35)
[2020-06-29] MEDS: Ferrous Gluconate 324 MG TAB PO SCH (08:38)
[2020-06-29 11:43] LABS: Platelet Count 166 thou/uL (130-400)
[2020-06-29 11:53] LABS: EPI 103 SEC (67-199)
[2020-06-29] MEDS: rOPINIRole HCl 0.25 MG TAB PO SCH (20:34)
[2020-06-29] MEDS: Atorvastatin Calcium 40 MG TAB PO SCH (20:34)
[2020-06-29] MEDS: Enoxaparin Sodium 30 MG/0.3 ML SYRINGE SC SCH (20:35)
[2020-06-30 06:07] LABS: Anion Gap 14 mmol/L (10-20); BUN (Urea Nitrogen) 15 mg/dL (9.8-20.1); Calc. Creatinine Clearance 35 mL/min (70-130); Calcium 9.4 mg/dL (7.8-10.44); Carbon Dioxide 25 mmol/L (23-31); Chloride 99 mmol/L (98-107); Glucose 109 mg/dL (83-110); Potassium 3.8 mmol/L (3.5-5.1); Sodium 134 mmol/L (136-145)
[2020-06-30 06:20] LABS: #Eosinphils 0.2 10x3/uL (0.0-0.5); #Monocytes 1.1 10x3/uL (0.0-1.1); #Neutrophils 5.3 10x3/uL (1.5-8.4); %Basophils 0.5 % (0.0-2.0); %Eosinophils 2.8 % (0.0-6.0); %Lymphocytes 16.3 % (18.0-47.0); %Monocytes 13.9 % (0.0-10.0); %Neutrophils 65.3 % (40.0-75.0); Hemoglobin 8.6 g/dL (12.0-15.5); Mean Corpuscular HGB CONC 31.7 g/dL (32.0-36.0); Mean Corpuscular Hemoglobin 29.5 pg (27.0-33.0); Mean Corpuscular Volume 92.8 fl (81.6-98.3); Mean Platelet Volume 9.4 fl (7.4-10.4); Platelet Count 145 10x3/uL (150-450); RBC Distribution Width 15.9 % (11.5-14.5); Red Blood Cell (RBC) Count 2.92 10x6/uL (3.90-5.03); White Blood Cell (WBC) Count 8.1 10x3/uL (3.5-10.5)
[2020-06-30] MEDS: HumaLOG 300 UNITS/3 ML VIAL SC SCH ×3 (08:13→16:16)
[2020-06-30] MEDS: Ferrous Gluconate 324 MG TAB PO SCH (08:13)
[2020-06-30] MEDS: Amlodipine 5 MG TAB PO SCH ×2 (08:13→22:05)
[2020-06-30] MEDS: Simethicone Chewable 80 MG TAB PO SCH ×3 (08:14→22:43)
[2020-06-30] MEDS: NPH, Human Insulin Isophane 300 UNIT/3 ML VIAL SC SCH ×2 (08:14→22:42)
[2020-06-30] MEDS: Isosorbide Mononitrate 20 MG TAB PO SCH ×2 (08:14→22:42)
[2020-06-30] MEDS: Polyethylene Glycol 3350 17 GM Packet PO SCH (08:14)
[2020-06-30] MEDS: Saccharomyces boulardii 250 MG CAP PO SCH (08:14)
[2020-06-30] MEDS: Gabapentin 300 MG CAP PO SCH ×2 (08:14→22:42)
[2020-06-30] MEDS: Folic Acid 1 MG TAB PO SCH (08:14)
[2020-06-30] MEDS ORDERED: Metoprolol Tartrate 5 MG/5 ML VIAL ONE (08:38)
[2020-06-30] MEDS ORDERED: PROPOFOL 20 ML ONE (10:33)
[2020-06-30] MEDS ORDERED: Fentanyl 100 MCG/2 ML VIAL ONE (10:33)
[2020-06-30] MEDS ORDERED: PHENYLEPHRINE-NS 100 MCG/ML 10 ML SYRINGE ONE (11:16)
[2020-06-30] MEDS ORDERED: Ondansetron PF 4 MG/2 ML Vial ONE (11:51)
[2020-06-30] MEDS: EPOETIN ALFA-EPBX (ESRD) 4,000 UNIT/ML VIAL SC SCH (16:10)
[2020-06-30] MEDS: Acetaminophen 500 MG TAB PO PRN (16:59)
[2020-06-30] MEDS: Atorvastatin Calcium 40 MG TAB PO SCH (22:39)
[2020-06-30] MEDS: Enoxaparin Sodium 30 MG/0.3 ML SYRINGE SC SCH (22:39)
[2020-06-30] MEDS: rOPINIRole HCl 0.25 MG TAB PO SCH (22:42)
[2020-07-01 04:59] LABS: #Eosinphils 0.2 10x3/uL (0.0-0.5); #Neutrophils 7.7 10x3/uL (1.5-8.4); %Basophils 0.3 % (0.0-2.0); %Eosinophils 1.5 % (0.0-6.0); %Lymphocytes 10.9 % (18.0-47.0); %Monocytes 10.2 % (0.0-10.0); %Neutrophils 76.2 % (40.0-75.0); Hemoglobin 8.5 g/dL (12.0-15.5); Mean Corpuscular HGB CONC 31.7 g/dL (32.0-36.0); Mean Corpuscular Hemoglobin 29.4 pg (27.0-33.0); Mean Corpuscular Volume 92.7 fl (81.6-98.3); Mean Platelet Volume 9.4 fl (7.4-10.4); Platelet Count 148 10x3/uL (150-450); RBC Distribution Width 15.6 % (11.5-14.5); Red Blood Cell (RBC) Count 2.89 10x6/uL (3.90-5.03); White Blood Cell (WBC) Count 10.2 10x3/uL (3.5-10.5)
[2020-07-01 05:16] LABS: Anion Gap 16 mmol/L (10-20); BUN (Urea Nitrogen) 29 mg/dL (9.8-20.1); Calc. Creatinine Clearance 23 mL/min (70-130); Calcium 9.2 mg/dL (7.8-10.44); Carbon Dioxide 24 mmol/L (23-31); Chloride 98 mmol/L (98-107); Glucose 169 mg/dL (83-110); Potassium 4.3 mmol/L (3.5-5.1); Sodium 134 mmol/L (136-145)
[2020-07-01] MEDS: HumaLOG 300 UNITS/3 ML VIAL SC SCH ×3 (08:25→16:41)
[2020-07-01] MEDS: Isosorbide Mononitrate 20 MG TAB PO SCH (08:33)
[2020-07-01] MEDS: Saccharomyces boulardii 250 MG CAP PO SCH (08:34)
[2020-07-01] MEDS: Folic Acid 1 MG TAB PO SCH (08:34)
[2020-07-01] MEDS: Ferrous Gluconate 324 MG TAB PO SCH (08:34)
[2020-07-01] MEDS: Clopidogrel Bisulfate 75 MG TAB PO SCH (08:35)
[2020-07-01] MEDS: Amlodipine 5 MG TAB PO SCH (08:35)
[2020-07-01] MEDS: Gabapentin 300 MG CAP PO SCH (08:35)
[2020-07-01] MEDS: Simethicone Chewable 80 MG TAB PO SCH ×2 (08:36→16:41)
[2020-07-01] MEDS: Polyethylene Glycol 3350 17 GM Packet PO SCH (08:36)
[2020-07-01] MEDS: NPH, Human Insulin Isophane 300 UNIT/3 ML VIAL SC SCH ×2 (08:36→23:17)
[2020-07-01] MEDS: Acetaminophen 500 MG TAB PO PRN (10:54)
[2020-07-01] MEDS: Enoxaparin Sodium 30 MG/0.3 ML SYRINGE SC SCH (23:17)
[2020-07-02] MEDS: Gabapentin 300 MG CAP PO SCH ×3 (03:44→22:30)
[2020-07-02] MEDS: rOPINIRole HCl 0.25 MG TAB PO SCH ×2 (03:44→22:30)
[2020-07-02] MEDS: Simethicone Chewable 80 MG TAB PO SCH ×4 (03:44→22:30)
[2020-07-02] MEDS: Amlodipine 5 MG TAB PO SCH ×3 (03:44→22:30)
[2020-07-02] MEDS: Isosorbide Mononitrate 20 MG TAB PO SCH ×3 (03:44→22:30)
[2020-07-02] MEDS: Atorvastatin Calcium 40 MG TAB PO SCH ×2 (03:44→22:30)
[2020-07-02 05:29] LABS: #Eosinphils 0.1 10x3/uL (0.0-0.5); #Monocytes 1.1 10x3/uL (0.0-1.1); #Neutrophils 6.5 10x3/uL (1.5-8.4); %Basophils 0.3 % (0.0-2.0); %Eosinophils 1.4 % (0.0-6.0); %Lymphocytes 14.8 % (18.0-47.0); %Monocytes 11.6 % (0.0-10.0); Mean Corpuscular Hemoglobin 29.3 pg (27.0-33.0); Mean Corpuscular Volume 91.6 fl (81.6-98.3); Mean Platelet Volume 9.2 fl (7.4-10.4); Platelet Count 159 10x3/uL (150-450); RBC Distribution Width 15.8 % (11.5-14.5); Red Blood Cell (RBC) Count 2.73 10x6/uL (3.90-5.03); White Blood Cell (WBC) Count 9.2 10x3/uL (3.5-10.5)
[2020-07-02] MEDS: HumaLOG 300 UNITS/3 ML VIAL SC SCH ×3 (10:18→17:03)
[2020-07-02] MEDS: Ferrous Gluconate 324 MG TAB PO SCH (13:12)
[2020-07-02] MEDS: Clopidogrel Bisulfate 75 MG TAB PO SCH (13:13)
[2020-07-02] MEDS: Folic Acid 1 MG TAB PO SCH (13:14)
[2020-07-02] MEDS: Saccharomyces boulardii 250 MG CAP PO SCH (13:14)
[2020-07-02] MEDS: Acetaminophen 500 MG TAB PO PRN ×2 (13:14→17:02)
[2020-07-02] MEDS: Polyethylene Glycol 3350 17 GM Packet PO SCH (13:25)
[2020-07-02] MEDS: NPH, Human Insulin Isophane 300 UNIT/3 ML VIAL SC SCH ×2 (13:25→22:00)
[2020-07-02] MEDS: EPOETIN ALFA-EPBX (ESRD) 4,000 UNIT/ML VIAL SC SCH (14:28)
[2020-07-02] MEDS: Enoxaparin Sodium 30 MG/0.3 ML SYRINGE SC SCH (23:00)
[2020-07-03 05:22] LABS: #Eosinphils 0.2 10x3/uL (0.0-0.5); #Monocytes 0.9 10x3/uL (0.0-1.1); #Neutrophils 6.4 10x3/uL (1.5-8.4); %Basophils 0.4 % (0.0-2.0); %Eosinophils 1.9 % (0.0-6.0); %Lymphocytes 10.3 % (18.0-47.0); %Monocytes 10.8 % (0.0-10.0); %Neutrophils 75.9 % (40.0-75.0); Hemoglobin 8.3 g/dL (12.0-15.5); Mean Corpuscular HGB CONC 31.8 g/dL (32.0-36.0); Mean Corpuscular Hemoglobin 29.3 pg (27.0-33.0); Mean Corpuscular Volume 92.2 fl (81.6-98.3); Mean Platelet Volume 9.8 fl (7.4-10.4); Platelet Count 172 10x3/uL (150-450); RBC Distribution Width 15.7 % (11.5-14.5); Red Blood Cell (RBC) Count 2.83 10x6/uL (3.90-5.03); White Blood Cell (WBC) Count 8.5 10x3/uL (3.5-10.5)
[2020-07-03 05:46] LABS: Anion Gap 16 mmol/L (10-20); BUN (Urea Nitrogen) 24 mg/dL (9.8-20.1); Calc. Creatinine Clearance 29 mL/min (70-130); Calcium 9.5 mg/dL (7.8-10.44); Carbon Dioxide 25 mmol/L (23-31); Chloride 99 mmol/L (98-107); Glucose 209 mg/dL (83-110); Potassium 3.9 mmol/L (3.5-5.1); Sodium 136 mmol/L (136-145)
[2020-07-03] MEDS: HumaLOG 300 UNITS/3 ML VIAL SC SCH ×3 (10:06→16:26)
[2020-07-03] MEDS: Saccharomyces boulardii 250 MG CAP PO SCH (10:20)
[2020-07-03] MEDS: Amlodipine 5 MG TAB PO SCH ×2 (10:20→21:03)
[2020-07-03] MEDS: Gabapentin 300 MG CAP PO SCH ×2 (10:21→21:05)
[2020-07-03] MEDS: Clopidogrel Bisulfate 75 MG TAB PO SCH (10:21)
[2020-07-03] MEDS: Simethicone Chewable 80 MG TAB PO SCH ×3 (10:22→21:02)
[2020-07-03] MEDS: Folic Acid 1 MG TAB PO SCH (10:22)
[2020-07-03] MEDS: Ferrous Gluconate 324 MG TAB PO SCH (10:23)
[2020-07-03] MEDS: Isosorbide Mononitrate 20 MG TAB PO SCH ×2 (10:26→21:05)
[2020-07-03] MEDS: NPH, Human Insulin Isophane 300 UNIT/3 ML VIAL SC SCH ×2 (10:28→21:00)
[2020-07-03] MEDS: Polyethylene Glycol 3350 17 GM Packet PO SCH (10:29)
[2020-07-03] MEDS: rOPINIRole HCl 0.25 MG TAB PO SCH (21:00)
[2020-07-03] MEDS: Atorvastatin Calcium 40 MG TAB PO SCH (21:02)
[2020-07-03] MEDS: Acetaminophen 500 MG TAB PO PRN (21:10)
[2020-07-03] MEDS: Enoxaparin Sodium 30 MG/0.3 ML SYRINGE SC SCH (22:00)
[2020-07-04] MEDS: Ferrous Gluconate 324 MG TAB PO SCH (08:14)
[2020-07-04] MEDS: Isosorbide Mononitrate 20 MG TAB PO SCH ×2 (08:15→20:39)
[2020-07-04] MEDS: Amlodipine 5 MG TAB PO SCH ×2 (08:15→20:40)
[2020-07-04] MEDS: Polyethylene Glycol 3350 17 GM Packet PO SCH (08:15)
[2020-07-04] MEDS: Clopidogrel Bisulfate 75 MG TAB PO SCH (08:15)
[2020-07-04] MEDS: Simethicone Chewable 80 MG TAB PO SCH ×3 (08:15→21:13)
[2020-07-04] MEDS: Folic Acid 1 MG TAB PO SCH (08:15)
[2020-07-04] MEDS: Saccharomyces boulardii 250 MG CAP PO SCH (08:15)
[2020-07-04] MEDS: Gabapentin 300 MG CAP PO SCH ×2 (08:15→20:40)
[2020-07-04] MEDS: HumaLOG 300 UNITS/3 ML VIAL SC SCH ×3 (08:17→16:19)
[2020-07-04] MEDS: Acetaminophen 500 MG TAB PO PRN ×2 (10:28→23:57)
[2020-07-04] MEDS: NPH, Human Insulin Isophane 300 UNIT/3 ML VIAL SC SCH ×2 (12:07→21:13)
[2020-07-04] MEDS: EPOETIN ALFA-EPBX (ESRD) 4,000 UNIT/ML VIAL SC SCH (17:35)
[2020-07-04] MEDS: Enoxaparin Sodium 30 MG/0.3 ML SYRINGE SC SCH (20:07)
[2020-07-04] MEDS: Atorvastatin Calcium 40 MG TAB PO SCH (20:39)
[2020-07-04] MEDS: rOPINIRole HCl 0.25 MG TAB PO SCH (20:40)
[2020-07-05 05:16] LABS: #Eosinphils 0.3 10x3/uL (0.0-0.5); %Basophils 0.4 % (0.0-2.0); %Eosinophils 3.4 % (0.0-6.0); %Monocytes 12.8 % (0.0-10.0); Hemoglobin 7.7 g/dL (12.0-15.5); Mean Corpuscular HGB CONC 32.1 g/dL (32.0-36.0); Mean Corpuscular Hemoglobin 29.2 pg (27.0-33.0); Mean Corpuscular Volume 90.9 fl (81.6-98.3); Mean Platelet Volume 9.9 fl (7.4-10.4); Platelet Count 175 10x3/uL (150-450); RBC Distribution Width 15.9 % (11.5-14.5); Red Blood Cell (RBC) Count 2.64 10x6/uL (3.90-5.03); White Blood Cell (WBC) Count 7.6 10x3/uL (3.5-10.5)
[2020-07-05 05:37] LABS: Anion Gap 13 mmol/L (10-20); BUN (Urea Nitrogen) 21 mg/dL (9.8-20.1); Calc. Creatinine Clearance 33 mL/min (70-130); Calcium 9.4 mg/dL (7.8-10.44); Carbon Dioxide 26 mmol/L (23-31); Chloride 99 mmol/L (98-107); Glucose 228 mg/dL (83-110); Potassium 3.4 mmol/L (3.5-5.1); Sodium 135 mmol/L (136-145)
[2020-07-05] MEDS: Ferrous Gluconate 324 MG TAB PO SCH (08:39)
[2020-07-05] MEDS: Isosorbide Mononitrate 20 MG TAB PO SCH ×2 (08:39→21:17)
[2020-07-05] MEDS: Folic Acid 1 MG TAB PO SCH (08:39)
[2020-07-05] MEDS: Gabapentin 300 MG CAP PO SCH ×2 (08:40→21:15)
[2020-07-05] MEDS: Amlodipine 5 MG TAB PO SCH ×2 (08:43→21:14)
[2020-07-05] MEDS: Polyethylene Glycol 3350 17 GM Packet PO SCH (08:43)
[2020-07-05] MEDS: Simethicone Chewable 80 MG TAB PO SCH ×3 (08:43→21:15)
[2020-07-05] MEDS: Saccharomyces boulardii 250 MG CAP PO SCH (08:43)
[2020-07-05] MEDS: NPH, Human Insulin Isophane 300 UNIT/3 ML VIAL SC SCH ×2 (08:44→21:16)
[2020-07-05] MEDS: HumaLOG 300 UNITS/3 ML VIAL SC SCH ×3 (08:44→16:55)
[2020-07-05] MEDS: Acetaminophen 500 MG TAB PO PRN (21:13)
[2020-07-05] MEDS: rOPINIRole HCl 0.25 MG TAB PO SCH (21:14)
[2020-07-05] MEDS: Atorvastatin Calcium 40 MG TAB PO SCH (21:15)
[2020-07-05] MEDS: Enoxaparin Sodium 30 MG/0.3 ML SYRINGE SC SCH (21:15)
[2020-07-06] MEDS: HumaLOG 300 UNITS/3 ML VIAL SC SCH ×3 (08:15→16:54)
[2020-07-06] MEDS: Folic Acid 1 MG TAB PO SCH (08:22)
[2020-07-06] MEDS: Gabapentin 300 MG CAP PO SCH ×2 (08:23→20:57)
[2020-07-06] MEDS: Amlodipine 5 MG TAB PO SCH ×2 (08:23→20:45)
[2020-07-06] MEDS: Simethicone Chewable 80 MG TAB PO SCH ×3 (08:24→20:58)
[2020-07-06] MEDS: Ferrous Gluconate 324 MG TAB PO SCH (08:24)
[2020-07-06] MEDS: Saccharomyces boulardii 250 MG CAP PO SCH (08:24)
[2020-07-06] MEDS: Polyethylene Glycol 3350 17 GM Packet PO SCH (08:24)
[2020-07-06] MEDS: Isosorbide Mononitrate 20 MG TAB PO SCH ×2 (08:24→20:44)
[2020-07-06] MEDS: NPH, Human Insulin Isophane 300 UNIT/3 ML VIAL SC SCH ×2 (08:25→20:58)
[2020-07-06] MEDS: Enoxaparin Sodium 30 MG/0.3 ML SYRINGE SC SCH (20:44)
[2020-07-06] MEDS: rOPINIRole HCl 0.25 MG TAB PO SCH (20:45)
[2020-07-06] MEDS: Acetaminophen 500 MG TAB PO PRN (20:56)
[2020-07-06] MEDS: Atorvastatin Calcium 40 MG TAB PO SCH (20:58)
[2020-07-07] MEDS: Acetaminophen 500 MG TAB PO PRN ×2 (02:45→21:36)
[2020-07-07 05:09] LABS: #Eosinphils 0.2 10x3/uL (0.0-0.5); #Neutrophils 6.3 10x3/uL (1.5-8.4); %Basophils 0.3 % (0.0-2.0); %Eosinophils 2.6 % (0.0-6.0); %Lymphocytes 17.2 % (18.0-47.0); %Monocytes 10.8 % (0.0-10.0); %Neutrophils 67.7 % (40.0-75.0); Hemoglobin 7.5 g/dL (12.0-15.5); Mean Corpuscular HGB CONC 31.6 g/dL (32.0-36.0); Mean Corpuscular Hemoglobin 28.8 pg (27.0-33.0); Mean Corpuscular Volume 91.2 fl (81.6-98.3); Mean Platelet Volume 9.7 fl (7.4-10.4); Platelet Count 191 10x3/uL (150-450); White Blood Cell (WBC) Count 9.2 10x3/uL (3.5-10.5)
[2020-07-07 05:29] LABS: Anion Gap 15 mmol/L (10-20)
[2020-07-07 05:36] LABS: BUN (Urea Nitrogen) 41 mg/dL (9.8-20.1); Calc. Creatinine Clearance 19 mL/min (70-130); Calcium 9.9 mg/dL (7.8-10.44); Carbon Dioxide 25 mmol/L (23-31); Chloride 100 mmol/L (98-107); Glucose 109 mg/dL (83-110); Potassium 3.5 mmol/L (3.5-5.1); Sodium 136 mmol/L (136-145)
[2020-07-07] MEDS: HumaLOG 300 UNITS/3 ML VIAL SC SCH ×3 (08:44→17:19)
[2020-07-07] MEDS: Ferrous Gluconate 324 MG TAB PO SCH (08:45)
[2020-07-07] MEDS: Isosorbide Mononitrate 20 MG TAB PO SCH ×2 (08:45→21:40)
[2020-07-07] MEDS: Gabapentin 300 MG CAP PO SCH ×2 (08:45→21:37)
[2020-07-07] MEDS: Amlodipine 5 MG TAB PO SCH ×2 (08:45→21:36)
[2020-07-07] MEDS: Folic Acid 1 MG TAB PO SCH (08:45)
[2020-07-07] MEDS: NPH, Human Insulin Isophane 300 UNIT/3 ML VIAL SC SCH ×2 (08:45→21:40)
[2020-07-07] MEDS: Polyethylene Glycol 3350 17 GM Packet PO SCH (08:46)
[2020-07-07] MEDS: Simethicone Chewable 80 MG TAB PO SCH ×3 (08:46→21:36)
[2020-07-07] MEDS: Saccharomyces boulardii 250 MG CAP PO SCH (08:46)
[2020-07-07] MEDS ORDERED: Minocycline HCl 50 MG CAP PO SCH ×3 (11:00→21:00)
[2020-07-07] MEDS ORDERED: VANCOMYCIN 1.75 GM/350 ML BAG 1.75 GM in Premix Bag 1 BAG IVPB SCH (12:00)
[2020-07-07] MEDS: EPOETIN ALFA-EPBX (ESRD) 4,000 UNIT/ML VIAL SC SCH (14:47)
[2020-07-07] MEDS: Atorvastatin Calcium 40 MG TAB PO SCH (21:35)
[2020-07-07] MEDS: rOPINIRole HCl 0.25 MG TAB PO SCH (21:35)
[2020-07-07] MEDS: Enoxaparin Sodium 30 MG/0.3 ML SYRINGE SC SCH (21:35)
[2020-07-08] MEDS ORDERED: [UNRECOGNIZED DRUG - REMARK] IVPB PRN (07:15)
[2020-07-08] MEDS ORDERED: Meropenem 500 MG in Sodium Chloride 0.9% 100 ML IVPB SCH (09:00)
[2020-07-08] MEDS: Saccharomyces boulardii 250 MG CAP PO SCH (09:09)
[2020-07-08] MEDS: Amlodipine 5 MG TAB PO SCH ×2 (09:09→21:37)
[2020-07-08] MEDS: Ferrous Gluconate 324 MG TAB PO SCH (09:12)
[2020-07-08] MEDS: HumaLOG 300 UNITS/3 ML VIAL SC SCH ×3 (09:13→16:32)
[2020-07-08] MEDS: Gabapentin 300 MG CAP PO SCH ×2 (09:13→21:38)
[2020-07-08] MEDS: Folic Acid 1 MG TAB PO SCH (09:13)
[2020-07-08] MEDS: Isosorbide Mononitrate 20 MG TAB PO SCH ×2 (09:14→21:38)
[2020-07-08] MEDS: Simethicone Chewable 80 MG TAB PO SCH ×3 (09:15→21:38)
[2020-07-08] MEDS: Polyethylene Glycol 3350 17 GM Packet PO SCH (09:17)
[2020-07-08] MEDS: NPH, Human Insulin Isophane 300 UNIT/3 ML VIAL SC SCH ×2 (09:25→21:34)
[2020-07-08] MEDS ORDERED: VANCOMYCIN 1.25 GM/250 ML BAG 1.25 GM in Premix Bag 1 BAG IVPB SCH (10:00)
[2020-07-08 19:40] LABS: SARS-CoV-2 IgG Ab Non-Reactive (NonReactive); SARS-CoV-2 IgG Index 0.07 S/CO (< 1.40)
[2020-07-08] MEDS: rOPINIRole HCl 0.25 MG TAB PO SCH (21:35)
[2020-07-08] MEDS: Enoxaparin Sodium 30 MG/0.3 ML SYRINGE SC SCH (21:35)
[2020-07-08] MEDS: Atorvastatin Calcium 40 MG TAB PO SCH (21:38)
[2020-07-08] MEDS: Acetaminophen 500 MG TAB PO PRN (22:15)
[2020-07-09 06:15] LABS: Vancomycin, Random 38.5 ug/mL (See Comment)
[2020-07-09] MEDS: HumaLOG 300 UNITS/3 ML VIAL SC SCH ×3 (07:30→19:14)
[2020-07-09] MEDS: Gabapentin 300 MG CAP PO SCH ×2 (07:30→20:49)
[2020-07-09] MEDS: Amlodipine 5 MG TAB PO SCH ×2 (07:30→20:50)
[2020-07-09] MEDS: NPH, Human Insulin Isophane 300 UNIT/3 ML VIAL SC SCH ×2 (07:30→20:51)
[2020-07-09 09:57] LABS: #Eosinphils 0.3 10x3/uL (0.0-0.5); #Monocytes 0.6 10x3/uL (0.0-1.1); #Neutrophils 5.3 10x3/uL (1.5-8.4); %Basophils 0.6 % (0.0-2.0); %Eosinophils 4.5 % (0.0-6.0); %Lymphocytes 10.6 % (18.0-47.0); %Monocytes 8.5 % (0.0-10.0); Hemoglobin 9.8 g/dL (12.0-15.5); Mean Corpuscular HGB CONC 32.2 g/dL (32.0-36.0); Mean Corpuscular Hemoglobin 28.7 pg (27.0-33.0); Mean Corpuscular Volume 88.9 fl (81.6-98.3); Mean Platelet Volume 9.4 fl (7.4-10.4); Platelet Count 206 10x3/uL (150-450); RBC Distribution Width 15.9 % (11.5-14.5); Red Blood Cell (RBC) Count 3.42 10x6/uL (3.90-5.03); White Blood Cell (WBC) Count 7.2 10x3/uL (3.5-10.5)
[2020-07-09 10:42] LABS: ALT (SGPT) 23 U/L (8-55); AST (SGOT) 28 U/L (5-34); Albumin 2.6 g/dL (3.4-4.8); Alkaline Phosphatase 104 U/L (40-110); Anion Gap 14 mmol/L (10-20); BUN (Urea Nitrogen) 9 mg/dL (9.8-20.1); Bilirubin, Total 0.5 mg/dL (0.2-1.2); Calc. Creatinine Clearance 77 mL/min (70-130); Carbon Dioxide 28 mmol/L (23-31); Chloride 98 mmol/L (98-107); Globulin 3.7 g/dL (2.4-3.5); Glucose 106 mg/dL (83-110); Potassium 3.1 mmol/L (3.5-5.1); Protein, Total 6.3 g/dL (5.8-8.1); Sodium 137 mmol/L (136-145)
[2020-07-09 10:59] LABS: Calcium 8.9 mg/dL (7.8-10.44)
[2020-07-09] MEDS ORDERED: Meropenem 500 MG in Sodium Chloride 0.9% 100 ML IVPB SCH (13:00)
[2020-07-09] MEDS: Folic Acid 1 MG TAB PO SCH (17:34)
[2020-07-09] MEDS: Ferrous Gluconate 324 MG TAB PO SCH (17:34)
[2020-07-09] MEDS: Isosorbide Mononitrate 20 MG TAB PO SCH ×2 (17:34→20:51)
[2020-07-09] MEDS: Simethicone Chewable 80 MG TAB PO SCH ×2 (17:35→20:52)
[2020-07-09] MEDS: Polyethylene Glycol 3350 17 GM Packet PO SCH (17:35)
[2020-07-09] MEDS: Saccharomyces boulardii 250 MG CAP PO SCH (17:35)
[2020-07-09] MEDS: EPOETIN ALFA-EPBX (ESRD) 4,000 UNIT/ML VIAL SC SCH (17:36)
[2020-07-09] MEDS: Citalopram 20 MG TAB PO SCH ×2 (17:36→17:46)
[2020-07-09] MEDS ORDERED: Citalopram 20 MG TAB ONE (17:45)
[2020-07-09] MEDS: Atorvastatin Calcium 40 MG TAB PO SCH (20:50)
[2020-07-09] MEDS: Enoxaparin Sodium 30 MG/0.3 ML SYRINGE SC SCH (20:50)
[2020-07-09] MEDS: rOPINIRole HCl 0.25 MG TAB PO SCH (20:51)
[2020-07-10 02:31] LABS: SARS-CoV-2 PCR by NAA Not Detected (NotDetected)
[2020-07-10 08:58] VITALS: BMI 31.8
[2020-07-10] MEDS ORDERED: Citalopram 20 MG TAB PO SCH (09:00)
[2020-07-10] MEDS: Folic Acid 1 MG TAB PO SCH (09:30)
[2020-07-10] MEDS: Ferrous Gluconate 324 MG TAB PO SCH (09:30)
[2020-07-10] MEDS: Gabapentin 300 MG CAP PO SCH (09:30)
[2020-07-10] MEDS: Saccharomyces boulardii 250 MG CAP PO SCH (09:30)
[2020-07-10] MEDS: Simethicone Chewable 80 MG TAB PO SCH (09:30)
[2020-07-10] MEDS: Isosorbide Mononitrate 20 MG TAB PO SCH (09:30)
[2020-07-10] MEDS: Amlodipine 5 MG TAB PO SCH (10:30)
[2020-07-10] MEDS: Polyethylene Glycol 3350 17 GM Packet PO SCH (10:31)
[2020-07-10] MEDS: Acetaminophen 500 MG TAB PO PRN ×2 (10:32→14:10)
[2020-07-10 10:44] LABS: Anion Gap 14 mmol/L (10-20)
[2020-07-10 10:59] LABS: BUN (Urea Nitrogen) 23 mg/dL (9.8-20.1); Calc. Creatinine Clearance 30 mL/min (70-130); Calcium 9.6 mg/dL (7.8-10.44); Carbon Dioxide 25 mmol/L (23-31); Chloride 99 mmol/L (98-107); Glucose 151 mg/dL (83-110); Potassium 3.3 mmol/L (3.5-5.1); Sodium 135 mmol/L (136-145)
[2020-07-10 12:12] VITALS: BP 127/57; TEMP 98.2
== END 2020-07-10 17:40 | DRG 239 ==
LOC: CSHTELE 19:54
PROVIDERS: ADMIT Specialist; ATTEND Specialist
PROC: 30233N1 Transfusion of Nonautologous Red Blood Cells into Peripheral Vein, Percutaneous Approach (ICD-10-PCS; principal; 2020-06-12)
PROC: 5A1D70Z Performance of Urinary Filtration, Intermittent, Less than 6 Hours Per Day (ICD-10-PCS; 2020-06-12)
PROC: 0Y6C0Z1 Detachment at Right Upper Leg, High, Open Approach (ICD-10-PCS; 2020-07-07)
DX: E11.52 Type 2 diabetes mellitus with diabetic peripheral angiopathy with gangrene (principal); N18.6 End stage renal disease; G93.41 Metabolic encephalopathy; I13.2 Hypertensive heart and chronic kidney disease with heart failure and with stage 5 chronic kidney disease, or end stage renal disease; I50.32 Chronic diastolic (congestive) heart failure; L97.819 Non-pressure chronic ulcer of other part of right lower leg with unspecified severity; I70.261 Atherosclerosis of native arteries of extremities with gangrene, right leg; R78.81 Bacteremia; T81.89XA Other complications of procedures, not elsewhere classified, initial encounter; Z20.822 Contact with and (suspected) exposure to COVID-19; I70.213 Atherosclerosis of native arteries of extremities with intermittent claudication, bilateral legs; I25.118 Atherosclerotic heart disease of native coronary artery with other forms of angina pectoris; E78.2 Mixed hyperlipidemia; I65.29 Occlusion and stenosis of unspecified carotid artery; E11.22 Type 2 diabetes mellitus with diabetic chronic kidney disease; Z99.2 Dependence on renal dialysis; Z87.891 Personal history of nicotine dependence; Z90.710 Acquired absence of both cervix and uterus; Z79.02 Long term (current) use of antithrombotics/antiplatelets; Z79.4 Long term (current) use of insulin; Z79.899 Other long term (current) drug therapy; Z88.1 Allergy status to other antibiotic agents; D63.1 Anemia in chronic kidney disease; I35.0 Nonrheumatic aortic (valve) stenosis; K21.9 Gastro-esophageal reflux disease without esophagitis; G47.33 Obstructive sleep apnea (adult) (pediatric); Z98.49 Cataract extraction status, unspecified eye; Z95.820 Peripheral vascular angioplasty status with implants and grafts; Z89.611 Acquired absence of right leg above knee; D72.829 Elevated white blood cell count, unspecified; R41.0 Disorientation, unspecified
CPT/HCPCS: 36415; 36416; 36430; 71045; 80048; 80053; 80202; 83605; 85014; 85018; 85025; 85576; 86140; 86769; 86850; 86900; 86901; 87040; 87077; 87149; 87186; 87340; 87635; 88307; 88311; 90935; 93306; G0257; G0277; J1071; J1644; J1650; J1815; J2185; J2270; J2405; J2704; J3010; J3370; J3490; P9016; Q5105; U0003; U0005

== ENCOUNTER 2020-09-22 09:43 | Emergency (ER) | payer MEDICARE, BC ==
[2020-09-22 10:32] LABS: #Eosinphils 0.3 10x3/uL (0.0-0.5); #Monocytes 0.6 10x3/uL (0.0-1.1); #Neutrophils 5.7 10x3/uL (1.5-8.4); %Basophils 0.3 % (0.0-2.0); %Eosinophils 4.2 % (0.0-6.0); %Lymphocytes 7.9 % (18.0-47.0); %Monocytes 8.7 % (0.0-10.0); %Neutrophils 78.5 % (40.0-75.0); Hemoglobin 9.8 g/dL (12.0-15.5); Mean Corpuscular Hemoglobin 28.4 pg (27.0-33.0); Mean Corpuscular Volume 88.7 fl (81.6-98.3); Mean Platelet Volume 10.4 fl (7.4-10.4); Platelet Count 187 10x3/uL (150-450); RBC Distribution Width 15.6 % (11.5-14.5); Red Blood Cell (RBC) Count 3.45 10x6/uL (3.90-5.03); White Blood Cell (WBC) Count 7.3 10x3/uL (3.5-10.5)
[2020-09-22 10:53] LABS: ALT (SGPT) 10 U/L (8-55); AST (SGOT) 20 U/L (5-34); Albumin 2.9 g/dL (3.4-4.8); Alkaline Phosphatase 64 U/L (40-110); Anion Gap 15 mmol/L (10-20); BUN (Urea Nitrogen) 31 mg/dL (9.8-20.1); Bilirubin, Total 0.5 mg/dL (0.2-1.2); Calc. Creatinine Clearance 0 mL/min (70-130); Carbon Dioxide 28 mmol/L (23-31); Chloride 102 mmol/L (98-107); Globulin 3.6 g/dL (2.4-3.5); Glucose 93 mg/dL (83-110); Potassium 3.9 mmol/L (3.5-5.1); Protein, Total 6.5 g/dL (5.8-8.1); Sodium 141 mmol/L (136-145)
[2020-09-22 10:58] LABS: Calcium 11.1 mg/dL (7.8-10.44)
[2020-09-22 11:11] LABS: Bilirubin Neg (Negative); Blood, Urine 10 (Negative); Clarity Clear (Clear); Glucose, Urine (Dipstick) Normal (Negative); Ketone, Urine Negative (Negative); Leukocyte Negative (Negative); Nitrite Negative (Negative); Protein, Urine (Dipstick) 100 mg/dl (Neg-Trace); Urobilinogen Normal mg/dL (Less than 2); pH, Urine 6.5 (5.0-9.0)
[2020-09-22 11:19] LABS: Bacteria/HPF Rare-Few HPF (None Seen); Squamous Epithelial 0-3 HPF (0-3)
[2020-09-22] MEDS ORDERED: Acetaminophen 500 MG TAB ONE (14:50)
== END 2020-09-22 17:28 | disposition home or self-care (01) ==
LOC: CSHERS 09:43
DX: E11.649 Type 2 diabetes mellitus with hypoglycemia without coma (principal); E11.51 Type 2 diabetes mellitus with diabetic peripheral angiopathy without gangrene; E11.22 Type 2 diabetes mellitus with diabetic chronic kidney disease; I12.9 Hypertensive chronic kidney disease with stage 1 through stage 4 chronic kidney disease, or unspecified chronic kidney disease; D63.1 Anemia in chronic kidney disease; N18.9 Chronic kidney disease, unspecified; K21.9 Gastro-esophageal reflux disease without esophagitis; E78.5 Hyperlipidemia, unspecified; F03.90 Unspecified dementia, unspecified severity, without behavioral disturbance, psychotic disturbance, mood disturbance, and anxiety; Z89.611 Acquired absence of right leg above knee; Z79.4 Long term (current) use of insulin; Z79.899 Other long term (current) drug therapy
CPT/HCPCS: 36416; 51701; 71045; 80053; 81003; 81015; 85025